=== PATIENT | male | born 1985 | race Caucasian/White ===

== ENCOUNTER 2018-11-12 23:24 | Observation (INO) | payer OTHER ==
[~2018-11-12] VITALS: Ht 180.3 cm; Wt 70.3 kg
[~2018-11-12 23:24] MED LIST: ACYC200; IBUP600 PO; L-Lysine500 M1; MAGOXI400; TURMERIC500 M2
[2018-11-13 00:15] LABS: BASOPHILS ABSOLUTE AUTO 0.02 K/mm3 (0.00-0.23); BASOPHILS PERCENT AUTO 0 % (0-2); EOSINOPHILS ABSOLUTE AUTO 0.03 K/mm3 (0.00-0.68); EOSINOPHILS PERCENT AUTO 0 % (0-6); Hematocrit 48.9 % (37.0-53.0); Hemoglobin 17.4 g/dL (13.5-17.5); IMMATURE GRAN ABSOLUTE AUTO 0.04 K/mm3 (0.00-0.10); IMMATURE GRAN PERCENT AUTO 0 % (0-1); LYMPHOCYTES ABSOLUTE AUTO 0.55 K/mm3 (0.84-5.20); LYMPHOCYTES PERCENT AUTO 4 % (21-46); MONOCYTES ABSOLUTE AUTO 0.36 K/mm3 (0.16-1.47); MONOCYTES PERCENT AUTO 3 % (4-13); Mean Corpuscular HGB Conc 35.6 g/dL (31.5-36.5); Mean Corpuscular Volume 96 fL (80-100); NEUTROPHILS ABSOLUTE AUTO 13.31 K/mm3 (1.96-9.15); NEUTROPHILS PERCENT AUTO 93 % (41-73); Platelet Count 240 K/mm3 (150-400); RDW Coefficient Variation 11.3 % (11.7-14.2); RDW Standard Deviation 39.8 fL (35.1-46.3); Red Blood Cell Count 5.12 M/mm3 (4.30-5.90); White Blood Cell Count 14.31 K/mm3 (4.00-11.30)
[2018-11-13 00:34] LABS: Alanine Aminotransfer (ALT/SGP 25 U/L (12-78); Albumin, Blood 4.7 g/dL (3.4-5.0); Albumin/Globulin Ratio 1.3 (0.8-1.8); Alk Phos 83 U/L (50-136); Anion Gap 9 mmol/L (6-16); Aspartate Aminotrans (AST/SGOT 15 U/L (12-37); Bilirubin, Total 0.8 mg/dL (0.1-1.0); Blood Urea Nitrogen 13 mg/dL (8-24); Bun/Creatinine Ratio 15.7 (12.0-20.0); CO2, Blood 26 mmol/L (21-32); Calcium, Blood 9.3 mg/dL (8.5-10.1); Chloride, Blood 103 mmol/L (98-108); Creatinine, Blood 0.83 mg/dL (0.60-1.20); Globulin, Blood 3.5 g/dL (2.2-4.0); Glomerular Filtration Rate >60 (60-); Glucose, Blood 119 mg/dL (70-99); Potassium, Blood 3.5 mmol/L (3.5-5.5); Sodium, Blood 138 mmol/L (136-145); Total Protein, Blood 8.2 g/dL (6.4-8.2)
[2018-11-13 04:42] LABS: Source, Urine Clean Catch
[2018-11-13 04:45] LABS: Bilirubin, Urine Neg (Neg); Blood, Urine Neg (Neg); Glucose Qualitative, Urine Neg (Neg); Ketones, Urine Neg (Neg); Leukocyte Esterase, Urine Neg (Neg); Nitrite, Urine Neg (Neg); Protein, Urine Neg (Neg); Urobilinogen, Urine NORM (Normal)
[2018-11-13 04:47] LABS: Appearance, Urine Clear (Clear); Color, Urine Yellow (P-Yellow)
--- NOTE | 2018-11-13 05:16 | NUR ---
PHSYICIAN COMMUNICATION DR. PASTOR NOTIFIED APPROX. [id number] THAT PT REPORTS ITCHING AT IV SITE, AREA FROM IV UP ARM SHOULDER RED AND IRRITATED; CIPRO INFUSING, CIPRO INFUSION STOPPED; PT DENIES TROUBLE BREATHING. ORDERS RECEIVED AND ENTERED. NOTIFIED RN WILL START A NEW IV SITE FOR FURTHER INFUSION. NED PT.
--- NOTE | 2018-11-13 07:32 | NUR ---
SHIFT SUMMARY PT TO UNIT FROM ER VIA WC; IN ROOM T/O SHIFT. ABD SOFT, BTX4; NO STOOL WHILE ON UNIT. PT EDUCATED ON NEED FOR STOOLS SAMPLE. SEE PROVIDER NOTIFICATION NOTE IN REDNESS IN LUE, RESOLVED BY SHIFT CHANGE, NO REDNESS NOTED. PAIN AND NAUSEA MANGED PER EMRA. CLEARS DIET PER ORDERS. SCD'S TO BLE'S. CALL LIGHT IN REACH; PT DEMONSTRATES USE. REPORT GIVEN TO DAY SHIFT RN.
--- NOTE | 2018-11-13 13:03 | NUR ---
ABD PAIN/NAUSEA REPORTS INCREASE IN NAUSEA AFTER TAKING SMALL BITES OF LUNCH. DECLINES TORADOL.
--- NOTE | 2018-11-13 14:34 | NUR ---
ASSUMED CARE OF PT. PT RESTING QUIETLY IN BED SPOUSE AT BEDSIDE. DENIES ANY NEEDS OR C/O AT THIS TIME. CALL LIGHT IN REACH
--- NOTE | 2018-11-13 15:51 | NUR ---
DR. BERRY CALLED ASKING IF PT WANTED TO BE DC'D HOME ON ORAL ABX. SPOKE WITH PT WHOM STATED DID NOT FEEL READY BECAUSE HE HASN'T BEEN ABLE TO DRINK FLUIDS. INTAKE IS STILL VERY LOW. UPDATED KRISTI. PT WILL STAY ANOTHER NIGHT AND DC HOME TOMORROW.
--- NOTE | 2018-11-13 18:02 | NUR ---
DOING WELL WITH DINNER TONIGHT. EATING SLOWLY BUT TOLERATING WELL. NO N/V. PAIN IS TOLERABLE. PLAN FOR DISCHARGE TOMORROW. CALL LIGHT IN REACH.
[2018-11-14 05:43] LABS: BASOPHILS ABSOLUTE AUTO 0.02 K/mm3 (0.00-0.23); BASOPHILS PERCENT AUTO 0 % (0-2); EOSINOPHILS ABSOLUTE AUTO 0.09 K/mm3 (0.00-0.68); EOSINOPHILS PERCENT AUTO 1 % (0-6); Hematocrit 41.1 % (37.0-53.0); IMMATURE GRAN ABSOLUTE AUTO 0.01 K/mm3 (0.00-0.10); IMMATURE GRAN PERCENT AUTO 0 % (0-1); LYMPHOCYTES PERCENT AUTO 16 % (21-46); MONOCYTES PERCENT AUTO 8 % (4-13); Mean Corpuscular HGB 32.9 pg (26.0-34.0); Mean Corpuscular HGB Conc 34.1 g/dL (31.5-36.5); Mean Corpuscular Volume 97 fL (80-100); Mean Platelet Volume 9.9 fL (9.1-12.4); NEUTROPHILS ABSOLUTE AUTO 4.62 K/mm3 (1.96-9.15); NEUTROPHILS PERCENT AUTO 74 % (41-73); Platelet Count 171 K/mm3 (150-400); RDW Coefficient Variation 11.8 % (11.7-14.2); Red Blood Cell Count 4.25 M/mm3 (4.30-5.90); White Blood Cell Count 6.24 K/mm3 (4.00-11.30)
[2018-11-14 06:09] LABS: Anion Gap 4 mmol/L (6-16); Blood Urea Nitrogen 7 mg/dL (8-24); Bun/Creatinine Ratio 7.5 (12.0-20.0); CO2, Blood 27 mmol/L (21-32); Chloride, Blood 109 mmol/L (98-108); Creatinine, Blood 0.94 mg/dL (0.60-1.20); Glomerular Filtration Rate >60 (60-); Glucose, Blood 93 mg/dL (70-99); Potassium, Blood 4.5 mmol/L (3.5-5.5); Sodium, Blood 140 mmol/L (136-145)
--- NOTE | 2018-11-14 06:37 | NUR ---
SUMMARY PT SLEPT OFF AND ON TONIGHT. REPORTS IMPROVING. VERB HAVING DIARRRHEA MOSTLY AFTER EATING. I SPOKE WITH DR RENTERIA LAST NIGHT AND ORDER WAS OBTAINED FOR GI STUDY ON STOOL. PT VERB MOST LIKELY WILL HAVE SAMPLE AFTER EATING BREAKFAST. PT AWARE TO NOTIFY IF STOOL OBTAINED PER NEW SPECIPAN IN BATHROOM FOR SENDING TO LAB. NO C/O NAUSEA TONIGHT. NOT REQUESTING ANY PAIN MEDS.
[2018-11-14] MEDS ORDERED: CEFP200 PO (10:16)
[2018-11-14] MEDS ORDERED: ACET325 PO (10:16)
[2018-11-14] MEDS ORDERED: METR250 PO (10:17)
[2018-11-14] MEDS ORDERED: IBUP400 PO (10:17)
[2018-11-14] MEDS ORDERED: NYST100000 PO (10:19)
[2018-11-14] MEDS ORDERED: ONDA4ODT MM (10:20)
[2018-11-14] MEDS ORDERED: PANT20 PO (10:20)
[2018-11-14] MEDS ORDERED: SACC250C PO (10:21)
[2018-11-14] MEDS ORDERED: CITRACAL + D E1 EACH PO (10:23)
== END 2018-11-14 10:44 | disposition home or self-care (01) ==
LOC: ER 23:24 → SURS 23:25 → ER 11-13 02:26 → SURS 11-13 02:26
PROVIDERS: Emergency Medicine; Family Medicine; ADMIT Family Medicine
DX: A41.9 Sepsis, unspecified organism (principal); K52.9 Noninfective gastroenteritis and colitis, unspecified; D72.829 Elevated white blood cell count, unspecified; B37.0 Candidal stomatitis; Z88.1 Allergy status to other antibiotic agents; Z91.041 Radiographic dye allergy status; Z86.19 Personal history of other infectious and parasitic diseases
CPT/HCPCS: 36415; 74176; 80048; 80053; 81003; 83605; 83690; 85025; 87040; 96361; 96374; 96375; 99285-25; C9113; G0378; J0696; J0744; J1885; J2270; J2405; J3480; J7030

== ENCOUNTER 2018-12-13 16:29 | Emergency (ER) | payer OTHER ==
[~2018-12-13] VITALS: Ht 180.3 cm; Wt 70.3 kg
[~2018-12-13 16:29] MED LIST changes: +ACET325 PO; +CEFP200 PO; +CITRACAL + D E1 EACH PO; +IBUP400 PO; +METR250 PO; +NYST100000 PO; +ONDA4ODT MM; +PANT20 PO; +SACC250C PO
[2018-12-13 17:10] LABS: BASOPHILS ABSOLUTE AUTO 0.03 K/mm3 (0.00-0.23); BASOPHILS PERCENT AUTO 0 % (0-2); EOSINOPHILS ABSOLUTE AUTO 0.04 K/mm3 (0.00-0.68); EOSINOPHILS PERCENT AUTO 1 % (0-6); Hematocrit 47.9 % (37.0-53.0); Hemoglobin 16.6 g/dL (13.5-17.5); IMMATURE GRAN ABSOLUTE AUTO 0.01 K/mm3 (0.00-0.10); IMMATURE GRAN PERCENT AUTO 0 % (0-1); LYMPHOCYTES ABSOLUTE AUTO 1.13 K/mm3 (0.84-5.20); LYMPHOCYTES PERCENT AUTO 13 % (21-46); MONOCYTES ABSOLUTE AUTO 0.33 K/mm3 (0.16-1.47); MONOCYTES PERCENT AUTO 4 % (4-13); Mean Corpuscular HGB 33.6 pg (26.0-34.0); Mean Corpuscular HGB Conc 34.7 g/dL (31.5-36.5); Mean Corpuscular Volume 97 fL (80-100); Mean Platelet Volume 10.6 fL (9.1-12.4); NEUTROPHILS PERCENT AUTO 82 % (41-73); Platelet Count 205 K/mm3 (150-400); RDW Coefficient Variation 11.7 % (11.7-14.2); RDW Standard Deviation 41.9 fL (35.1-46.3); Red Blood Cell Count 4.94 M/mm3 (4.30-5.90); White Blood Cell Count 8.74 K/mm3 (4.00-11.30)
[2018-12-13 17:19] LABS: Source, Urine Clean Catch
[2018-12-13 17:26] LABS: Bilirubin, Urine Neg (Neg); Blood, Urine Neg (Neg); Glucose Qualitative, Urine Neg (Neg); Ketones, Urine Neg (Neg); Leukocyte Esterase, Urine Neg (Neg); Nitrite, Urine Neg (Neg); Protein, Urine Neg (Neg); Urobilinogen, Urine NORM (Normal)
[2018-12-13 17:31] LABS: Alanine Aminotransfer (ALT/SGP 30 U/L (12-78); Albumin, Blood 4.6 g/dL (3.4-5.0); Albumin/Globulin Ratio 1.5 (0.8-1.8); Alk Phos 70 U/L (50-136); Anion Gap 8 mmol/L (6-16); Aspartate Aminotrans (AST/SGOT 15 U/L (12-37); Bilirubin, Total 0.7 mg/dL (0.1-1.0); Blood Urea Nitrogen 12 mg/dL (8-24); Bun/Creatinine Ratio 16.2 (12.0-20.0); CO2, Blood 27 mmol/L (21-32); Calcium, Blood 8.8 mg/dL (8.5-10.1); Chloride, Blood 104 mmol/L (98-108); Creatinine, Blood 0.74 mg/dL (0.60-1.20); Globulin, Blood 3.1 g/dL (2.2-4.0); Glomerular Filtration Rate >60 (60-); Glucose, Blood 95 mg/dL (70-99); Potassium, Blood 3.5 mmol/L (3.5-5.5); Sodium, Blood 139 mmol/L (136-145); Total Protein, Blood 7.7 g/dL (6.4-8.2)
[2018-12-13 17:47] LABS: Appearance, Urine Clear (Clear); Color, Urine Yellow (P-Yellow)
[2018-12-13] MEDS ORDERED: Bentyl20 MG PO (19:05)
== END 2018-12-13 19:20 | disposition home or self-care (01) ==
LOC: ER 16:29
PROVIDERS: Physician Assistant
DX: K52.9 Noninfective gastroenteritis and colitis, unspecified (principal); Z88.8 Allergy status to other drugs, medicaments and biological substances; Z91.013 Allergy to seafood; Z79.899 Other long term (current) drug therapy
CPT/HCPCS: 36415; 80053; 81003; 83690; 85025; 87324; 87493; 99283